=== PATIENT | male | born 1955 | race Caucasian/White ===

== ENCOUNTER 2017-12-27 21:15 | Emergency (ER) | payer MEDICAID ==
[2017-12-27 21:16] VITALS: BMI 25.0
[2017-12-27 21:35] VITALS: BP 111/95; PULSE 99; RESP 20; TEMP 98.7; O2SAT 99
[2017-12-27] MEDS ORDERED: Tetanus/Diphtheria Toxoids 0.5 ml Syringe IM ONE ×2 (22:01→22:10)
--- NOTE | 2017-12-27 22:05 | C.PDOC ---
History Of Present Illness 62 year old male presents to the ER with a complaint of abrasions to the bilateral hands and right knee after he tripped and fell on an uneven sidewalk 2 hours [employer]. Denies head injury or LOC. Time Seen by Provider: 12/27/17 21:36 Chief Complaint (Nursing): Abnormal Skin Integrity History Per: Patient History/Exam Limitations: no limitations Onset/Duration Of Symptoms: Hrs Current Symptoms Are (Timing): Still Present Location Of Injury: Right: Hand, Knee, Left: Hand Quality Of Symptoms: Other (Abrasions) Recent travel outside of the [place]: No Past Medical History Reviewed: Historical Data, Nursing Documentation, Vital Signs Vital Signs: Last Vital Signs Temp 98.7 F 12/27/17 21:32 Pulse 99 H 12/27/17 21:32 Resp 20 12/27/17 21:32 BP 111/95 H 12/27/17 21:32 Pulse Ox 99 12/27/17 21:32 - Medical History PMH: Arthritis (MILD), Gall Bladder Disease, HTN (PT. DENIES"TAKES MED. A PRECAUTION"), Hypercholesterolemia (PT. DENIES "TAKES MED A PRECAUTION") Surgical History: Cholecystectomy (PT. HAD GALLSTONE AND "BELIEVES GALLBLADDER REMOVED"), Endoscopy Family History: States: Unknown Family Hx - Social History Hx Alcohol Use: No Hx Substance Use: No Review Of Systems Skin: Positive for: Other (Abrasions) Neurological: Negative for: Weakness, Numbness, Other (LOC) Physical Exam - Physical Exam Appears: Non-toxic Skin: Warm, Dry Head: Atraumatic, Normacephalic Eye(s): bilateral: Normal Inspection Extremity: Normal ROM (x4), Capillary Refill (<2 seconds), No Deformity, Other (Superficial abrasions to bases of bilateral palms, abrasion to dorsal right hand, abrasion to right knee) Pulses: Left Radial: Normal, Right Radial: Normal, Left Dorsalis Pedis: Normal, Right Dorsalis Pedis: Normal Neurological/Psych: Oriented x3, Normal Speech, Normal Motor, Normal Sensation Gait: Steady ED Course And Treatment O2 Sat by Pulse Oximetry: 99 (Room air) Pulse Ox Interpretation: Normal Progress Note: Wounds were cleansed and dresssed, tetanus vaccination administered. Patient is resting comfortably in the ER in no acute distress, vitals are stable, will discharge home with proper wound care instructions and advised to follow up with PMD. 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 - Scribe Statement The provider has reviewed the documentation as recorded by the Scribjovon Wilson All medical record entries made by the Dary were at my direction and personally dictated by me. I have reviewed the chart and agree that the record accurately reflects my personal performance of the history, physical exam, medical decision making, and the department course for this patient. I have also personally directed, reviewed, and agree with the discharge instructions and disposition.
[2017-12-27] MEDS ORDERED: Bacitracin 500 Units/gm Oint Foilpak UD ONE (22:09)
== END 2017-12-27 22:32 | disposition home or self-care (01) ==
LOC: C.ER 21:15
DX: S60.512A Abrasion of left hand, initial encounter (principal); S60.511A Abrasion of right hand, initial encounter; S80.211A Abrasion, right knee, initial encounter; W18.30XA Fall on same level, unspecified, initial encounter; Y92.480 Sidewalk as the place of occurrence of the external cause